=== PATIENT | female | born 1950 | race Caucasian/White ===

== ENCOUNTER 2018-09-23 06:59 | Day surgery (SDC) | payer BC, MEDICARE ==
[~2018-09-23] VITALS: Ht 157.5 cm; Wt 82.2 kg
[~2018-09-23 06:59] MED LIST: ATOR40TA PO; Aspirin EC81 MG PO; CEPH500 PO; Ferrousul325 MG PO; GLIM4 PO; GLIP5ER PO; HYDACE7.5 PO; JANUMET XR 50-1 EAC1 PO; METFORMIN HCL1000 MG PO; METO25ER PO; Nitrostat0.4 MG SL; Omeprazole20 M1 PO; Super Calcium600 MG PO; TRIA80TC TOP; TRIHYD253A PO; VITAMIN D35000 UNIT PO
[2018-09-23] MEDS ORDERED: LOSA25 (08:04)
== END 2018-09-23 09:46 | disposition home or self-care (01) ==
LOC: ORSCSDS 06:59
PROVIDERS: Student in an Organized Health Care Education/Training Program
PROC: 0DB88ZX Excision of Small Intestine, Via Natural or Artificial Opening Endoscopic, Diagnostic (ICD-10-PCS; principal; 2018-09-23 08:30)
PROC: 0DB68ZX Excision of Stomach, Via Natural or Artificial Opening Endoscopic, Diagnostic (ICD-10-PCS; principal; 2018-09-23 08:30)
PROC: 0DBH8ZX Excision of Cecum, Via Natural or Artificial Opening Endoscopic, Diagnostic (ICD-10-PCS; principal; 2018-09-23 08:30)
PROC: 0DB98ZX Excision of Duodenum, Via Natural or Artificial Opening Endoscopic, Diagnostic (ICD-10-PCS; principal; 2018-09-23 08:30)
DX: D50.9 Iron deficiency anemia, unspecified (principal); K21.9 Gastro-esophageal reflux disease without esophagitis; K31.7 Polyp of stomach and duodenum; D12.0 Benign neoplasm of cecum; K29.70 Gastritis, unspecified, without bleeding; K44.9 Diaphragmatic hernia without obstruction or gangrene; K57.30 Diverticulosis of large intestine without perforation or abscess without bleeding; E11.9 Type 2 diabetes mellitus without complications; I10 Essential (primary) hypertension; I25.10 Atherosclerotic heart disease of native coronary artery without angina pectoris; Z79.899 Other long term (current) drug therapy
CPT/HCPCS: 82947; 88305; 88341; 88342; J0330; J1980; J2405; J7120

== ENCOUNTER 2019-06-08 06:33 | Day surgery (SDC) | payer BC, MEDICARE ==
[~2019-06-08] VITALS: Ht 157.5 cm; Wt 85.3 kg
[~2019-06-08 06:33] MED LIST changes: -Aspirin EC81 MG PO; +Ferrous Sulfat325 M2 PO; -GLIM4 PO; +LOSA25; -Nitrostat0.4 MG SL; -Omeprazole20 M1 PO; -VITAMIN D35000 UNIT PO
[2019-06-08] MEDS ORDERED: LOSA50 PO (07:11)
[2019-06-08] MEDS ORDERED: ASCORBIC ACID500 MG PO (07:12)
[2019-06-09 03:07] LABS: HBSAG SCREEN Negative (Negative); HCV ANTIBODY <0.1 (0.0-0.9)
[2019-06-21] MEDS ORDERED: ATOR40TA PO (08:02)
[2019-06-21] MEDS ORDERED: Aspirin EC81 MG PO (08:02)
[2019-06-21] MEDS ORDERED: Dyazide 37.5-21 EACH PO (08:02)
[2019-06-21] MEDS ORDERED: METO25ER PO (08:03)
[2019-06-21] MEDS ORDERED: Nitrostat0.4 MG SL (08:03)
[2019-06-21] MEDS ORDERED: GLIM4 PO (08:04)
[2019-06-21] MEDS ORDERED: Glucophage1000 MG PO (08:04)
[2019-06-21] MEDS ORDERED: Ferrous Sulfat325 M2 PO (08:04)
[2019-06-21] MEDS ORDERED: Super Calcium600 MG PO (08:05)
[2019-06-21] MEDS ORDERED: Omeprazole20 M1 PO (08:05)
[2019-06-21] MEDS ORDERED: VITAMIN D35000 UNIT PO (08:05)
== END 2019-06-08 09:07 | disposition home or self-care (01) ==
LOC: ORSCSDS 06:33
PROVIDERS: Anesthesiology; Ophthalmology
PROC: 08RJ3JZ Replacement of Right Lens with Synthetic Substitute, Percutaneous Approach (ICD-10-PCS; principal; 2019-06-08 08:00)
DX: H25.11 Age-related nuclear cataract, right eye (principal); I10 Essential (primary) hypertension; E11.9 Type 2 diabetes mellitus without complications; I25.10 Atherosclerotic heart disease of native coronary artery without angina pectoris; Z79.899 Other long term (current) drug therapy
CPT/HCPCS: 82947; 86803; 87340; J2001; J2250; J3010; J3301; J7120; V2632

== ENCOUNTER 2019-06-29 06:17 | Day surgery (SDC) | payer BC, MEDICARE ==
[~2019-06-29] VITALS: Ht 160 cm; Wt 87.0 kg
[~2019-06-29 06:17] MED LIST changes: +ASCORBIC ACID500 MG PO; +Aspirin EC81 MG PO; +Dyazide 37.5-21 EACH PO; +GLIM4 PO; +Glucophage1000 MG PO; +LOSA50 PO; +Nitrostat0.4 MG SL; +Omeprazole20 M1 PO; +VITAMIN D35000 UNIT PO
[2019-06-29] MEDS ORDERED: LOSA50 PO (06:33)
== END 2019-06-29 08:17 | disposition home or self-care (01) ==
LOC: ORSCSDS 06:17
PROVIDERS: Ophthalmology
PROC: 08RK3JZ Replacement of Left Lens with Synthetic Substitute, Percutaneous Approach (ICD-10-PCS; principal; 2019-06-29 07:30)
DX: H25.12 Age-related nuclear cataract, left eye (principal); E11.9 Type 2 diabetes mellitus without complications; I10 Essential (primary) hypertension; I25.10 Atherosclerotic heart disease of native coronary artery without angina pectoris; K21.9 Gastro-esophageal reflux disease without esophagitis; E66.9 Obesity, unspecified; Z68.34 Body mass index [BMI] 34.0-34.9, adult; Z79.84 Long term (current) use of oral hypoglycemic drugs; Z79.899 Other long term (current) drug therapy
CPT/HCPCS: 82947; J2001; J2250; J3010; J3301; J7120; V2632

== ENCOUNTER 2020-11-23 07:46 | Day surgery (SDC) | payer BC, MEDICARE ==
[~2020-11-23] VITALS: Ht 157.5 cm; Wt 88.8 kg
[~2020-11-23 07:46] MED LIST changes: +ASCO500; +MAGNESIUM OXID500 MG
--- NOTE | 2020-11-23 10:08 | NUR ---
11/23/20 1008 NEAL LARIOS PATIENT REFUSED SLING
== END 2020-11-23 10:07 | disposition home or self-care (01) ==
LOC: ORSCSDS 07:46
PROVIDERS: Orthopaedic Surgery
PROC: 0LN70ZZ Release Right Hand Tendon, Open Approach (ICD-10-PCS; principal; 2020-11-23 09:00)
DX: M65.331 Trigger finger, right middle finger (principal); E11.9 Type 2 diabetes mellitus without complications; I10 Essential (primary) hypertension; K21.9 Gastro-esophageal reflux disease without esophagitis; I25.10 Atherosclerotic heart disease of native coronary artery without angina pectoris; E78.00 Pure hypercholesterolemia, unspecified; E66.01 Morbid (severe) obesity due to excess calories; Z68.35 Body mass index [BMI] 35.0-35.9, adult; Z79.82 Long term (current) use of aspirin; Z79.899 Other long term (current) drug therapy
CPT/HCPCS: 82947; J0690; J2250; J2704; J7120

== ENCOUNTER 2021-10-10 18:25 | Observation (INO) | payer OTHER, BC, MEDICARE ==
[~2021-10-10] VITALS: Ht 160 cm; Wt 87.1 kg
[~2021-10-10 18:25] MED LIST changes: -ASCO500; +ASCO500 PO; +CALCIUM CARBON650 MG PO; -Glucophage1000 MG PO; -MAGNESIUM OXID500 MG; +MAGNESIUM OXID500 MG PO; +METF500 PO; -VITAMIN D35000 UNIT PO; +VITAMIN D5000 UNIT PO
[2021-10-11 00:18] LABS: BASOPHILS ABSOLUTE AUTO 0.04 K/mm3 (0.00-0.23); BASOPHILS PERCENT AUTO 0 % (0-2); EOSINOPHILS PERCENT AUTO 1 % (0-6); Hematocrit 34.4 % (33.0-51.0); Hemoglobin 11.2 g/dL (11.5-16.0); IMMATURE GRAN ABSOLUTE AUTO 0.04 K/mm3 (0.00-0.10); IMMATURE GRAN PERCENT AUTO 0 % (0-1); LYMPHOCYTES ABSOLUTE AUTO 1.56 K/mm3 (0.84-5.20); LYMPHOCYTES PERCENT AUTO 14 % (21-46); MONOCYTES ABSOLUTE AUTO 0.69 K/mm3 (0.16-1.47); MONOCYTES PERCENT AUTO 6 % (4-13); Mean Corpuscular HGB 28.6 pg (26.0-34.0); Mean Corpuscular HGB Conc 32.6 g/dL (31.5-36.5); Mean Corpuscular Volume 88 fL (80-100); NEUTROPHILS ABSOLUTE AUTO 8.85 K/mm3 (1.96-9.15); NEUTROPHILS PERCENT AUTO 78 % (41-73); Platelet Count 163 K/mm3 (150-400); RDW Coefficient Variation 14.3 % (11.7-14.2); RDW Standard Deviation 45.9 fL (35.1-46.3); Red Blood Cell Count 3.91 M/mm3 (3.80-5.20); White Blood Cell Count 11.28 K/mm3 (4.00-11.30)
[2021-10-11 00:40] LABS: Albumin, Blood 3.2 g/dL (3.4-5.0); Albumin/Globulin Ratio 1.3 (0.8-1.8); Bilirubin, Total 0.5 mg/dL (0.1-1.0); Bun/Creatinine Ratio 25.7 (12.0-20.0); Calcium, Blood 8.7 mg/dL (8.5-10.1); Creatinine, Blood 0.93 mg/dL (0.40-1.00); Globulin, Blood 2.5 g/dL (2.2-4.0); Potassium, Blood 4.3 mmol/L (3.5-5.5); Total Protein, Blood 5.7 g/dL (6.4-8.2)
[2021-10-11 05:49] LABS: BASOPHILS ABSOLUTE AUTO 0.03 K/mm3 (0.00-0.23); BASOPHILS PERCENT AUTO 0 % (0-2); EOSINOPHILS PERCENT AUTO 1 % (0-6); Hematocrit 33.7 % (33.0-51.0); Hemoglobin 11.2 g/dL (11.5-16.0); IMMATURE GRAN ABSOLUTE AUTO 0.03 K/mm3 (0.00-0.10); IMMATURE GRAN PERCENT AUTO 0 % (0-1); LYMPHOCYTES ABSOLUTE AUTO 1.69 K/mm3 (0.84-5.20); LYMPHOCYTES PERCENT AUTO 19 % (21-46); MONOCYTES ABSOLUTE AUTO 0.66 K/mm3 (0.16-1.47); MONOCYTES PERCENT AUTO 7 % (4-13); Mean Corpuscular HGB 28.5 pg (26.0-34.0); Mean Corpuscular HGB Conc 33.2 g/dL (31.5-36.5); Mean Corpuscular Volume 86 fL (80-100); Mean Platelet Volume 11.2 fL (9.1-12.4); NEUTROPHILS ABSOLUTE AUTO 6.55 K/mm3 (1.96-9.15); NEUTROPHILS PERCENT AUTO 72 % (41-73); Platelet Count 164 K/mm3 (150-400); RDW Coefficient Variation 14.3 % (11.7-14.2); RDW Standard Deviation 44.7 fL (35.1-46.3); Red Blood Cell Count 3.93 M/mm3 (3.80-5.20); White Blood Cell Count 9.06 K/mm3 (4.00-11.30)
[2021-10-11 06:00] LABS: International Normalized Ratio 1.06; Prothrombin Time Results 11.1 Sec (9.7-11.5)
[2021-10-11 06:20] LABS: Bun/Creatinine Ratio 25.9 (12.0-20.0); Calcium, Blood 8.6 mg/dL (8.5-10.1); Creatinine, Blood 0.93 mg/dL (0.40-1.00); Potassium, Blood 4.1 mmol/L (3.5-5.5)
[2021-10-11] MEDS ORDERED: ACET325 PO (09:55)
== END 2021-10-11 10:25 | disposition home or self-care (01) ==
LOC: ER 18:25 → ERHOLD 18:26
PROVIDERS: ADMIT Family Medicine
DX: S80.11XA Contusion of right lower leg, initial encounter (principal); W18.09XA Striking against other object with subsequent fall, initial encounter; I10 Essential (primary) hypertension; I25.10 Atherosclerotic heart disease of native coronary artery without angina pectoris; E11.9 Type 2 diabetes mellitus without complications; Z79.84 Long term (current) use of oral hypoglycemic drugs; Z88.3 Allergy status to other anti-infective agents; Z88.5 Allergy status to narcotic agent; Z91.018 Allergy to other foods
CPT/HCPCS: 36415; 70450; 72070; 72100; 72125; 73590; 80048; 80053; 82550; 82947; 85025; 85610; 96365; 96375; 96376; 99285-25; A9270; J0360; J1815; J1885; J3010; J3475; J7030

== ENCOUNTER 2021-11-18 01:18 | Day surgery (SDC) | payer OTHER, BC, MEDICARE ==
[~2021-11-18 01:18] MED LIST changes: +ACET325 PO
== END 2021-11-18 23:20 | disposition home or self-care (01) ==
LOC: WOUND 01:18
DX: E11.622 Type 2 diabetes mellitus with other skin ulcer (principal); L97.819 Non-pressure chronic ulcer of other part of right lower leg with unspecified severity; S80.11XD Contusion of right lower leg, subsequent encounter; I87.2 Venous insufficiency (chronic) (peripheral); E11.51 Type 2 diabetes mellitus with diabetic peripheral angiopathy without gangrene; I10 Essential (primary) hypertension; E78.00 Pure hypercholesterolemia, unspecified; Z88.8 Allergy status to other drugs, medicaments and biological substances
CPT/HCPCS: G0463

== ENCOUNTER 2021-11-27 01:49 | Day surgery (SDC) | payer OTHER, BC, MEDICARE | END 2021-11-27 23:01 | disposition home or self-care (01) | LOC: WOUND 01:49 | DX: E11.622 Type 2 diabetes mellitus with other skin ulcer (principal); L97.818 Non-pressure chronic ulcer of other part of right lower leg with other specified severity; E11.51 Type 2 diabetes mellitus with diabetic peripheral angiopathy without gangrene; I87.2 Venous insufficiency (chronic) (peripheral); I10 Essential (primary) hypertension; E78.00 Pure hypercholesterolemia, unspecified | CPT/HCPCS: G0463 ==

== ENCOUNTER 2021-12-04 03:19 | Day surgery (SDC) | payer OTHER, BC, MEDICARE | END 2021-12-04 22:53 | disposition home or self-care (01) | LOC: WOUND 03:19 | DX: E11.622 Type 2 diabetes mellitus with other skin ulcer (principal); L97.812 Non-pressure chronic ulcer of other part of right lower leg with fat layer exposed; E11.51 Type 2 diabetes mellitus with diabetic peripheral angiopathy without gangrene; I87.2 Venous insufficiency (chronic) (peripheral); I10 Essential (primary) hypertension; E78.00 Pure hypercholesterolemia, unspecified | CPT/HCPCS: A9270 ==

== ENCOUNTER 2021-12-11 00:58 | Day surgery (SDC) | payer BC, MEDICARE | END 2021-12-11 22:56 | disposition home or self-care (01) | LOC: WOUND 00:58 | DX: E11.622 Type 2 diabetes mellitus with other skin ulcer (principal); L97.812 Non-pressure chronic ulcer of other part of right lower leg with fat layer exposed; E11.51 Type 2 diabetes mellitus with diabetic peripheral angiopathy without gangrene; I87.2 Venous insufficiency (chronic) (peripheral); S80.11XD Contusion of right lower leg, subsequent encounter | CPT/HCPCS: A9270 ==

== ENCOUNTER 2021-12-25 00:37 | Day surgery (SDC) | payer BC, MEDICARE | END 2021-12-25 22:52 | disposition home or self-care (01) | LOC: WOUND 00:37 | DX: E11.622 Type 2 diabetes mellitus with other skin ulcer (principal); L97.812 Non-pressure chronic ulcer of other part of right lower leg with fat layer exposed; S80.11XD Contusion of right lower leg, subsequent encounter; E11.51 Type 2 diabetes mellitus with diabetic peripheral angiopathy without gangrene; I87.2 Venous insufficiency (chronic) (peripheral); I10 Essential (primary) hypertension; E78.00 Pure hypercholesterolemia, unspecified | CPT/HCPCS: A9270 ==

== ENCOUNTER 2021-12-27 01:52 | Day surgery (SDC) | payer BC, MEDICARE | END 2021-12-27 23:02 | disposition home or self-care (01) | LOC: WOUND 01:52 | DX: L97.819 Non-pressure chronic ulcer of other part of right lower leg with unspecified severity (principal); S80.11XD Contusion of right lower leg, subsequent encounter; I73.9 Peripheral vascular disease, unspecified; I87.2 Venous insufficiency (chronic) (peripheral) ==

== ENCOUNTER 2022-01-01 01:28 | Day surgery (SDC) | payer BC, MEDICARE | END 2022-01-01 23:17 | disposition home or self-care (01) | LOC: WOUND 01:28 | DX: E11.621 Type 2 diabetes mellitus with foot ulcer (principal); L97.512 Non-pressure chronic ulcer of other part of right foot with fat layer exposed; I73.9 Peripheral vascular disease, unspecified; I87.2 Venous insufficiency (chronic) (peripheral); I10 Essential (primary) hypertension; E78.00 Pure hypercholesterolemia, unspecified | CPT/HCPCS: A9270 ==

== ENCOUNTER 2022-01-03 00:14 | Day surgery (SDC) | payer BC, MEDICARE | END 2022-01-03 23:09 | disposition home or self-care (01) | LOC: WOUND 00:14 | DX: L97.919 Non-pressure chronic ulcer of unspecified part of right lower leg with unspecified severity (principal); S80.11XA Contusion of right lower leg, initial encounter; I73.9 Peripheral vascular disease, unspecified; I87.2 Venous insufficiency (chronic) (peripheral) ==

== ENCOUNTER 2022-01-08 01:18 | Day surgery (SDC) | payer BC, MEDICARE | END 2022-01-08 23:03 | disposition home or self-care (01) | LOC: WOUND 01:18 | DX: L97.812 Non-pressure chronic ulcer of other part of right lower leg with fat layer exposed (principal); S80.11XD Contusion of right lower leg, subsequent encounter; I73.9 Peripheral vascular disease, unspecified; I87.2 Venous insufficiency (chronic) (peripheral) | CPT/HCPCS: A9270 ==

== ENCOUNTER 2022-01-10 01:35 | Day surgery (SDC) | payer BC, MEDICARE | END 2022-01-10 23:09 | disposition home or self-care (01) | LOC: WOUND 01:35 | DX: E11.622 Type 2 diabetes mellitus with other skin ulcer (principal); L97.919 Non-pressure chronic ulcer of unspecified part of right lower leg with unspecified severity; I10 Essential (primary) hypertension; S80.11XD Contusion of right lower leg, subsequent encounter; E11.51 Type 2 diabetes mellitus with diabetic peripheral angiopathy without gangrene; I87.2 Venous insufficiency (chronic) (peripheral) ==

== ENCOUNTER 2022-01-15 03:03 | Day surgery (SDC) | payer BC, MEDICARE | END 2022-01-15 22:59 | disposition home or self-care (01) | LOC: WOUND 03:03 | DX: E11.622 Type 2 diabetes mellitus with other skin ulcer (principal); L97.812 Non-pressure chronic ulcer of other part of right lower leg with fat layer exposed; S80.11XD Contusion of right lower leg, subsequent encounter; I73.9 Peripheral vascular disease, unspecified; I87.2 Venous insufficiency (chronic) (peripheral); I10 Essential (primary) hypertension; E78.00 Pure hypercholesterolemia, unspecified | CPT/HCPCS: A9270 ==

== ENCOUNTER 2022-01-22 01:05 | Day surgery (SDC) | payer BC, MEDICARE | END 2022-01-22 22:41 | disposition home or self-care (01) | LOC: WOUND 01:05 | DX: E11.622 Type 2 diabetes mellitus with other skin ulcer (principal); L97.812 Non-pressure chronic ulcer of other part of right lower leg with fat layer exposed; E11.51 Type 2 diabetes mellitus with diabetic peripheral angiopathy without gangrene; I87.2 Venous insufficiency (chronic) (peripheral); S80.11XD Contusion of right lower leg, subsequent encounter | CPT/HCPCS: A9270 ==

== ENCOUNTER 2022-01-29 00:34 | Day surgery (SDC) | payer BC, MEDICARE | END 2022-01-29 22:46 | disposition home or self-care (01) | LOC: WOUND 00:34 | DX: E11.622 Type 2 diabetes mellitus with other skin ulcer (principal); L97.812 Non-pressure chronic ulcer of other part of right lower leg with fat layer exposed; S80.11XD Contusion of right lower leg, subsequent encounter; I10 Essential (primary) hypertension; E78.00 Pure hypercholesterolemia, unspecified; E11.51 Type 2 diabetes mellitus with diabetic peripheral angiopathy without gangrene; I87.2 Venous insufficiency (chronic) (peripheral); X58.XXXD Exposure to other specified factors, subsequent encounter | CPT/HCPCS: A9270 ==

== ENCOUNTER 2022-02-05 02:20 | Day surgery (SDC) | payer BC, MEDICARE | END 2022-02-05 23:07 | disposition home or self-care (01) | LOC: WOUND 02:20 | DX: E11.622 Type 2 diabetes mellitus with other skin ulcer (principal); L97.812 Non-pressure chronic ulcer of other part of right lower leg with fat layer exposed; S80.11XD Contusion of right lower leg, subsequent encounter; I73.9 Peripheral vascular disease, unspecified; I87.2 Venous insufficiency (chronic) (peripheral); I10 Essential (primary) hypertension; E78.00 Pure hypercholesterolemia, unspecified ==

== ENCOUNTER 2022-02-12 08:11 | Day surgery (SDC) | payer BC, MEDICARE | END 2022-02-12 22:46 | disposition home or self-care (01) | LOC: WOUND 08:11 | DX: E11.622 Type 2 diabetes mellitus with other skin ulcer (principal); L97.812 Non-pressure chronic ulcer of other part of right lower leg with fat layer exposed; S80.11XD Contusion of right lower leg, subsequent encounter; X58.XXXD Exposure to other specified factors, subsequent encounter; E11.51 Type 2 diabetes mellitus with diabetic peripheral angiopathy without gangrene; I87.2 Venous insufficiency (chronic) (peripheral); I10 Essential (primary) hypertension | CPT/HCPCS: A9270 ==

== ENCOUNTER 2022-02-19 01:02 | Day surgery (SDC) | payer BC, MEDICARE | END 2022-02-19 22:54 | disposition home or self-care (01) | LOC: WOUND 01:02 | DX: E11.622 Type 2 diabetes mellitus with other skin ulcer (principal); L97.812 Non-pressure chronic ulcer of other part of right lower leg with fat layer exposed; S80.11XD Contusion of right lower leg, subsequent encounter; X58.XXXD Exposure to other specified factors, subsequent encounter; E11.51 Type 2 diabetes mellitus with diabetic peripheral angiopathy without gangrene; I87.2 Venous insufficiency (chronic) (peripheral); I10 Essential (primary) hypertension | CPT/HCPCS: A9270; Q4133 ==

== ENCOUNTER 2022-02-26 02:30 | Day surgery (SDC) | payer BC, MEDICARE | END 2022-02-26 23:37 | disposition home or self-care (01) | LOC: WOUND 02:30 | DX: E11.622 Type 2 diabetes mellitus with other skin ulcer (principal); L97.812 Non-pressure chronic ulcer of other part of right lower leg with fat layer exposed; E11.51 Type 2 diabetes mellitus with diabetic peripheral angiopathy without gangrene; I10 Essential (primary) hypertension; S80.11XD Contusion of right lower leg, subsequent encounter; X58.XXXD Exposure to other specified factors, subsequent encounter; I87.2 Venous insufficiency (chronic) (peripheral) | CPT/HCPCS: A9270; Q4133 ==

== ENCOUNTER 2022-03-05 01:21 | Day surgery (SDC) | payer BC, MEDICARE | END 2022-03-10 23:30 | disposition home or self-care (01) | LOC: WOUND 01:21 | DX: E11.622 Type 2 diabetes mellitus with other skin ulcer (principal); L97.812 Non-pressure chronic ulcer of other part of right lower leg with fat layer exposed; S80.11XD Contusion of right lower leg, subsequent encounter; X58.XXXD Exposure to other specified factors, subsequent encounter; E11.51 Type 2 diabetes mellitus with diabetic peripheral angiopathy without gangrene; I87.2 Venous insufficiency (chronic) (peripheral) | CPT/HCPCS: A9270; Q4133 ==

== ENCOUNTER 2022-03-12 03:58 | Day surgery (SDC) | payer BC, MEDICARE | END 2022-03-12 23:03 | disposition home or self-care (01) | LOC: WOUND 03:58 | DX: E11.622 Type 2 diabetes mellitus with other skin ulcer (principal); L97.812 Non-pressure chronic ulcer of other part of right lower leg with fat layer exposed; S80.11XD Contusion of right lower leg, subsequent encounter; X58.XXXD Exposure to other specified factors, subsequent encounter; I87.2 Venous insufficiency (chronic) (peripheral); E11.51 Type 2 diabetes mellitus with diabetic peripheral angiopathy without gangrene; I10 Essential (primary) hypertension | CPT/HCPCS: A9270 ==

== ENCOUNTER 2022-03-19 00:31 | Day surgery (SDC) | payer BC, MEDICARE | END 2022-03-19 22:41 | disposition home or self-care (01) | LOC: WOUND 00:31 | DX: E11.622 Type 2 diabetes mellitus with other skin ulcer (principal); L97.812 Non-pressure chronic ulcer of other part of right lower leg with fat layer exposed; S80.11XD Contusion of right lower leg, subsequent encounter; X58.XXXD Exposure to other specified factors, subsequent encounter; I87.2 Venous insufficiency (chronic) (peripheral); E11.51 Type 2 diabetes mellitus with diabetic peripheral angiopathy without gangrene; I10 Essential (primary) hypertension | CPT/HCPCS: G0463 ==

== ENCOUNTER 2022-04-02 08:00 | Day surgery (SDC) | payer BC, MEDICARE | END 2022-04-02 23:59 | disposition home or self-care (01) | LOC: WOUND 08:00 | DX: Z09 Encounter for follow-up examination after completed treatment for conditions other than malignant neoplasm (principal); Z87.2 Personal history of diseases of the skin and subcutaneous tissue; E11.9 Type 2 diabetes mellitus without complications; I10 Essential (primary) hypertension; E78.00 Pure hypercholesterolemia, unspecified; I87.2 Venous insufficiency (chronic) (peripheral) | CPT/HCPCS: A9270; G0463 ==